=== PATIENT | female | born 1990 | race Caucasian/White ===

== ENCOUNTER 2017-02-26 17:10 | Emergency (ER) | payer OTHER ==
[2017-02-26 17:16] VITALS: BP 108/82; PULSE 79; TEMP 98.2; BMI 27.4
--- NOTE | 2017-02-26 17:39 | PDOC ---
History of Present Illness - General History Source: Patient Exam Limitations: No Limitations - History of Present Illness Initial Comments: 02/26/17 18:29 The patient is a 26 year old female (G0), with no significant past medical history, who presents to the emergency department with intermittent nausea for the past 1-2 days. The patient reports that she is just getting over a head cold /sore throat/cough. She reports recent travel back to the [place] from the [place] on 02/12/2017. The patient presents today because she thinks she may be and would like a test. The patient denies fever, chills, dizziness or shortness of breath. The patient denies vomiting, diarrhea or abdominal pain. LMP: 01/31/2017. Allergies: None reported. Past Surgical History: Tonsillectomy Social History: Non-smoker. Denies alcohol consumption. Reports occasional marijuana use. <Pam Díaz - Last Filed: 02/26/17 18:54> <Carol Chairez - Last Filed: 02/26/17 19:15> - General Chief Complaint: Nausea Stated Complaint: DIZZINESS/PAIN Time Seen by Provider: 02/26/17 17:37 Past History <Pam Díaz - Last Filed: 02/26/17 18:54> - Past Medical History Other medical history: none - Psycho/Social/Smoking Cessation Hx Suicidal Ideation: No Smoking History: Never smoked Information on smoking cessation initiated: No Hx Alcohol Use: No Drug/Substance Use Hx: No Substance Use Type: Marijuana <Carol Chairez - Last Filed: 02/26/17 19:15> - Past Medical History Allergies/Adverse Reactions: Allergies Allergy/AdvReac Type Severity Reaction Status Date / Time No Known Allergies Allergy Verified 02/26/17 17:12 Home Medications: Ambulatory Orders Sulfamethoxazole/Trimethoprim [Bactrim Ds -] 1 tab PO BID #14 tablet 02/26/17 Review of Systems - Review of Systems Able to Perform ROS?: Yes Comments:: 02/26/17 17:42 CONSTITUTIONAL: Absent: fever, no chills, no fatigue EYES: Absent: visual changes ENT: Absent: ear pain, no sore throat CARDIOVASCULAR: Absent: chest pain, no palpitations RESPIRATORY: Absent: cough, no SOB GI: Present: +Nausea Absent: abdominal pain, no vomiting, no constipation, no diarrhea GENITOURINARY: Absent: dysuria, no frequency, no hematuria MUSCULOSKELETAL: Absent: back pain, no arthralgia, no myalgia SKIN: Absent: rash NEURO: Absent: headache <Pam Díaz - Last Filed: 02/26/17 18:54> *Physical Exam - Vital Signs Last Vital Signs Temp Pulse Resp BP Pulse Ox 98.2 F 79 18 108/82 100 02/26/17 17:13 02/26/17 17:13 02/26/17 17:13 02/26/17 17:13 02/26/17 17:13 - Physical Exam Comments: 02/26/17 17:43 GENERAL: Well-appearing, well-nourished. No apparent distress. HEENT: 1 cm hard movable nontender cyst posterior to the right ear, no fluctuance. Normocephalic, atraumatic. PERRL, EOM intact. CARDIOVASCULAR: Normal S1, S2. Regular rate and rhythm. PULMONARY: Clear to auscultation bilaterally. ABDOMEN: Soft, non-distended, non-tender. EXTREMITIES: Normal ROM in all four extremities. No gross deformities. SKIN: Warm, dry. No rash. NEUROLOGICAL: No focal neurological deficits. <Pam Díaz - Last Filed: 02/26/17 18:54> - Vital Signs Last Vital Signs Temp Pulse Resp BP Pulse Ox 98.2 F 79 18 108/82 100 02/26/17 17:13 02/26/17 17:13 02/26/17 17:13 02/26/17 17:13 02/26/17 17:13 <Carol Chairez - Last Filed: 02/26/17 19:15> ED Treatment Course - LABORATORY CBC & Chemistry Diagram: 02/26/17 18:00 02/26/17 18:00 <Pam Díaz - Last Filed: 02/26/17 18:54> - LABORATORY CBC & Chemistry Diagram: 02/26/17 18:00 02/26/17 18:00 <Carol Chairez - Last Filed: 02/26/17 19:15> Medical Decision Making - Medical Decision Making 02/26/17 18:42 26-year-old female presents for concern of being . She said that she had missed her menstrual cycle for 4 months prior to beginning of January, when she appeared to have a menstrual cycle. She then wanted medication to ER post time. She said that her friend was sick and when she got back after the 18. She had some nasal congestion and a bit of dry cough and felt feverish. She denies any nausea, vomiting, diarrhea, rash, productive cough, dysuria or back pain or shortness of breath. Abdominal exam is soft, nontender, no guarding Lungs are clear to auscultation HEENT shows some mild rhinorrhea Neuro alert and oriented 3, ambulatory, no gross focal neural deficits Skin there is no rash Vital signs are stable HCG is negative for She has a mild leukocytosis of 13,000 but no evidence of anemia. ua +3 LEUKS 02/26/17 19:14 imp UTI <Carol Chairez - Last Filed: 02/26/17 19:15> *DC/Admit/Observation/Transfer - Attestations Scribe Attestion: 02/26/17 17:40 Documentation prepared by Pam Díaz, acting as director medical economics for Carol Chairez MD. <Pam Díaz - Last Filed: 02/26/17 18:54> <Carol Chairez - Last Filed: 02/26/17 19:15> Diagnosis at time of Disposition: UTI (urinary tract infection) Qualifiers: Urinary tract infection type: site unspecified Hematuria presence: without hematuria Qualified Code(s): N39.0 - Urinary tract infection, site not specified - Discharge Dispostion Disposition: HOME Condition at time of disposition: Stable - Prescriptions Prescriptions: Sulfamethoxazole/Trimethoprim [Bactrim Ds -] 1 tab PO BID #14 tablet - Patient Instructions Printed Discharge Instructions: DI for Urinary Tract Infection (UTI) Additional Instructions: PLEASE GO TO [facility] AND FLYER BUILDER YOUR ANTIBIOTICS RETURN FOR ANY WORSENING SYMPTOMS
[2017-02-26 18:12] LABS: BASOPHIL 0.7 % (0-2.0); EOSINOPHIL 0.8 % (0-4.5); MCH 30.2 pg (25.7-33.7); MCHC 33.5 g/dl (32.0-36.0); MEAN CELL VOLUME 90.3 fl (80-96); MEAN PLT VOLUME 7.4 fl (7.5-11.1); NEUTROPHILS 72.8 % (42.8-82.8); PLATELET COUNT 377 K/MM3 (134-434); RDW 14.2 % (11.6-15.6); WHITE BLOOD COUNT 13.3 K/mm3 (4.0-10.0)
[2017-02-26 18:19] LABS: URINE APPEARANCE CLOUDY; URINE BILIRUBIN NEGATIVE (NEGATIVE); URINE BLOOD NEGATIVE (NEGATIVE); URINE COLOR YELLOW; URINE GLUCOSE (UA) NEGATIVE (NEGATIVE); URINE KETONE NEGATIVE (NEGATIVE); URINE NITRITE NEGATIVE (NEGATIVE); URINE UROBILINOGEN NEGATIVE mg/dL (0.2-1.0)
[2017-02-26 18:41] LABS: ALBUMIN 4.1 g/dl (3.4-5.0); ANION GAP 5 (8-16); CALCIUM 9.2 mg/dL (8.5-10.1); CO2 30 mmol/L (21-32); CREATININE 0.7 mg/dL (0.55-1.02); GLUCOSE,RANDOM 85 mg/dL (74-106); SGOT/AST 8 U/L (15-37); SGPT/ALT 13 U/L (12-78)
[2017-02-26 18:43] LABS: ALK PHOS 80 U/L (45-117); BILIRUBIN,TOTAL 0.4 mg/dL (0.2-1.0); TOT PROT 8.1 g/dl (6.4-8.2)
[2017-02-26 19:03] LABS: URINE LEUK ESTERASE 3+ (NEGATIVE); URINE PROTEIN 1+ (NEGATIVE)
[2017-02-26] MEDS ORDERED: SULFAMETHOXAZOLE/TRIMETHOPRIM 800MG/160MG D.S. TABLET PO ONE (19:09)
[2017-02-26] MEDS ORDERED: SULFAMETHOXAZOLE/TRIMETHOPRIM 800MG/160MG D.S. TABLET ONE (19:24)
[2017-02-26 19:48] LABS: URINE BACTERIA RARE /hpf (NONE SEEN); URINE RBC 21 /hpf (0-3); URINE WBC 68 /hpf (3-5); YEAST RARE
== END 2017-02-26 19:23 | disposition home or self-care (01) ==
LOC: JER 17:10
DX: N39.0 Urinary tract infection, site not specified (principal)
CPT/HCPCS: 36415; 80053; 81003; 81015; 83690; 84703; 85025; 99283-25